=== PATIENT | female | born 1995 | race African-American/Black ===

== ENCOUNTER 2016-09-01 11:58 | Emergency (ER) | payer SELFPAY ==
[2016-09-01 12:06] VITALS: BP 130/74; BMI 35.4
--- NOTE | 2016-09-01 12:38 | DR.URIAD ---
HPI - Time Seen Time seen: 12:32 - PCP Primary Care Physician: PARAMJIT - HPI Comment HPI Comment: Sore throat with slight cough and congestion for 2-3 days; feels like something is stuck in the back of her throat; no fever/chills/n/v/d; she has a constant rash which is unchanged from her usual; otc meds aren't helping; she doesn't smoke but does have asthma. - Complaint Chief Complaint:: PT C/O SORETHROAT, CCC, AND BACK PAIN.......PT STATES " I THINK I MAY HAVE STREP THROAT".. Self Treatment fo Chief Complaint: ALCOSELZER.... - Source History Provided: Patient - Mode of Arrival Mode of Arrival: Ambulatory - Timing Onset of Chief Complaint: 08/30/16 - Quality Shortness of Breath: Mild PMH - PMH Past Medical History: Yes Past Medical History: Asthma Past Surgical History: No - Family History History of Family Medical Conditions: No Family Medical History: Diabetes Mellitus - Social History Does patient currently use any type of tobacco product: No Have you used tobacco products in the last 12 months: No Type of Tobacco Use: None Does any household member use tobacco: No Alcohol Use: None Do you use any recreational Drugs:: No Lives With: Dad Lives Where: Home - infectious screening In the last 2 months have you had wt loss of >10#?: NO Have you had fever, night sweats or hemotysis?: No Have you traveled outside the country in the last 6 months?: No Isolation: Standard ROS - Review of Systems Constitutional: Malaise, Fatigue ENTM: Throat Pain Respiratoy: See HPI Cardiovascular: No Symptoms Reported Gastrointestinal/Abdominal: No Symptoms Reported Neurological: No Symptoms Reported Musculoskeletal: Muscle Pain (all over) Integumentary: Rash (see hpi) PE - Vital Signs Vitals: Temperature 97.6 F Pulse Rate 95 Respiratory Rate 20 Blood Pressure 130/74 O2 Sat by Pulse Oximetry 99 - General Limitations: No Limitations General Appearance: Alert, In No Apparent Distress - Head Head Exam: Normal Inspection, Atraumatic - ENT ENT Exam: Other (uvula elongated, minimally swollen and red) External Ear Exam: Normal External Inspection Nose Exam: Normal Nose Exam - Neck Neck Exam: Normal Inspection - Respiratory Respiratory Exam: Normal Lung Sounds Bilat Respiratory Exam: Bilateral Clear to Auscultation - Cardiovascular Cardiovascular Exam: Regular Rate, Normal Rhythm - Abdominal Exam Abdominal Exam: Normal Inspection, Normal Bowel Sounds - Neurologic Neurological Exam: Alert, Oriented X3 - Psychiatric Psychiatric Exam: Normal Affect - Skin Skin Exam: Rash (diffuse, scattered, papular rash over forearms, face) ROR - Labs Reviewed Laboratory Results Reviewed?: Yes (strep negative) Laboratory: Streptococcus Screen Negative (NEGATIVE) 09/01/16 12:39 - Diagnosis Discharge Problem: Uvulitis - Discharge Plan Disposition: HOME, SELF-CARE Condition: Stable Prescriptions: Azithromycin [Zithromax Z-Chas 5-day] 1 dose PO DAILY #6 tab Prednisone [PREDNISONE TAB 10 MG *] 10 mg PO QAM #5 tab - Follow ups/Referrals Follow ups/Referrals: NFD,None [Primary Care Provider] - 3 days - Instructions Instructions: Uvulitis Additional Instructions: push fluids
== END 2016-09-01 13:41 | disposition home or self-care (01) ==
LOC: ER 12:21
DX: K12.2 Cellulitis and abscess of mouth (principal)
CPT/HCPCS: 87070; 87880; 99282

== ENCOUNTER 2016-09-23 07:53 | Emergency (ER) | payer SELFPAY ==
[2016-09-23 08:02] VITALS: BP 117/69; BMI 36.5
--- NOTE | 2016-09-23 08:20 | DR.GENAD ---
HPI - PCP Primary Care Physician: rip - HPI Comment HPI Comment: PATIENT IS SOB AND CHEST TIGHT THIS AM. HISTORY ASTHMA. RUNNING FEVER AND HAVE COLD COUGH AND CONGESTION. SHE IS WEAK AND HAVE HEADACHE. - Complaint/Symptoms Chief Complaint Doctors Comments: SORE THROAT, FEVER, COUGH AND CONGESTION TIMES ONE DAY. Chief Complaint:: patient stated she has a sore throat and she is congested and it makes it hard to breath since yesterday. - Nurses notes reviewed Nurses Notes Review: Yes - Source History Provided: Patient - Mode of Arrival Mode of Arrival: Ambulatory - Timing Onset of Chief Complaint: 09/22/16 Came on: Suddenly - Duration Duration: Constant Duration: Days - Severity Severity: Moderate PMH - PMH Past Medical History: Yes Past Medical History: Asthma Past Surgical History: No - Family History History of Family Medical Conditions: No Family Medical History: Diabetes Mellitus - Social History Does patient currently use any type of tobacco product: No Have you used tobacco products in the last 12 months: No Type of Tobacco Use: None Does any household member use tobacco: No Alcohol Use: None Do you use any recreational Drugs:: No Lives With: Family Lives Where: Home - infectious screening In the last 2 months have you had wt loss of >10#?: NO Have you had fever, night sweats or hemotysis?: No Have you traveled outside the country in the last 6 months?: No Isolation: Standard ROS - Review of Systems Constitutional: Fever, Weakness, Fatigue. negative: Chills Eyes: No Symptoms Reported. negative: Eye Pain, Discharge ENTM: Nose Discharge, Nose Congestion, Throat Pain. negative: Ear Pain Respiratoy: Productive Cough, Short of Breath, Wheezing. negative: Hemoptysis Cardiovascular: Chest Pain Gastrointestinal/Abdominal: No Symptoms Reported. negative: Constipation, Diarrhea, Nausea, Vomiting Genitourinary: No Symptoms Reported. negative: Dysuria, Frequency, Hematuria Neurological: Headache, Weakness, Dizziness Musculoskeletal: Muscle Pain Integumentary: No Symptoms Reported Hematologic/Lymphatic: No Symptoms Reported Endocrine: No Symptoms Reported All Other Systems: Reviewed and Negative PE - Vital Signs Vitals: Temperature 98.2 F Pulse Rate 101 Respiratory Rate 18 Blood Pressure 117/69 O2 Sat by Pulse Oximetry 96 - General Limitations: No Limitations General Appearance: Alert - Head Head Exam: Normal Inspection - Eyes Eye exam: Normal Appearance - ENT ENT Exam: Normal External Ear Exam External Ear Exam: Normal External Inspection TM/Canal Exam: Bilateral Normal Nose Exam: Normal Nose Exam Mouth Exam: Normal Inspection Throat Exam: Normal Inspection - Neck Neck Exam: Normal Inspection - Chest Chest Inspection: Symmetric Chest Wall Rise - Respiratory Respiratory Exam: Normal Lung Sounds Bilat Respiratory Exam: Bilateral Wheezing, Bilateral Rhonchi, Lower Wheezing, Lower Rhonchi - Cardiovascular Cardiovascular Exam: Regular Rate, Normal Rhythm, Normal Heart Sounds - Abdominal Exam Abdominal Exam: Normal Bowel Sounds, Soft. negative: Tenderness - Extremities Extremities Exam: Normal Inspection - Back Back Exam: Normal Inspection - Neurologic Neurological Exam: Alert, Oriented X3 - Psychiatric Psychiatric Exam: Anxious - Skin Skin Exam: Normal Color MDM - Differential Diagnosis Differential Diagnosis: BRONCHITIS, PNEUMONIA, SINUSITIS, PHARYNGITIS, ASTHMA Course - Treatment Treatment: SEE ORDERS.NEB RX IN ED. - Reevaluation 1st: Improved - Education/Counseling Education/Counseling: Patient, Education Educated On: Treatment, Diagnosis, Needs for Follow Up ROR - Labs Reviewed Laboratory Results Reviewed?: Yes Laboratory: Streptococcus Screen Negative (NEGATIVE) 09/23/16 08:29 - XRAY XRAY Interpreted by: Radiologist XRAY Findings: REPORT DISCUSS WITH PATIENT. - Diagnosis Discharge Problem: Acute bronchitis Qualifiers: Bronchitis organism: other organism Qualified Code(s): J20.8 - Acute bronchitis due to other specified organisms Pharyngitis Qualifiers: Pharyngitis/tonsillitis etiology: other specified organisms Qualified Code(s): J02.8 - Acute pharyngitis due to other specified organisms - Discharge Plan Disposition: HOME, SELF-CARE Condition: Stable Prescriptions: Amoxicillin [Amoxil 875 mg] 875 mg PO BID #20 tab Benzonatate [Tessalon Perles] 100 mg PO TID PRN #15 cap PRN Reason: Cough Ibuprofen [MOTRIN TAB 600 MG *] 600 mg PO TID PRN #20 tab PRN Reason: Pain/Inflammation - Follow ups/Referrals Follow ups/Referrals: NFD,None [Primary Care Provider] - 3 days - Instructions Instructions: Pharyngitis, [id number], Acute Bronchitis, [id number] Additional Instructions: RETURN TO ED IF WORSE.
[2016-09-23] MEDS ORDERED: DUONEB 0.5 MG/3 MG ONE (08:40)
[2016-09-23] MEDS ORDERED: DUONEB 0.5 MG/3 MG NEB ONE (08:43)
--- NOTE | 2016-09-23 08:55 | RAD ---
HISTORY: Chest pain Study: chest one view Comparison: May 17, 2015 Findings: The trachea is midline. The cardiac silhouette is unremarkable. The lungs are clear without focal infiltrate or effusion. The bony thorax is unremarkable. IMPRESSION: 1. No acute cardiopulmonary disease. Reported By:
== END 2016-09-23 09:36 | disposition home or self-care (01) ==
LOC: ER 07:53
DX: J20.8 Acute bronchitis due to other specified organisms (principal); J02.8 Acute pharyngitis due to other specified organisms
CPT/HCPCS: 71010; 87070; 87502; 87503; 87880; 94640; 99282; 99283; J7620

== ENCOUNTER 2017-02-12 12:35 | Emergency (ER) | payer SELFPAY ==
[2017-02-12 12:39] VITALS: BP 141/82; BMI 36.5
[2017-02-12] MEDS ORDERED: TORADOL 60 MG VIAL IM ONE (13:02)
--- NOTE | 2017-02-12 13:19 | DR.GENAD ---
HPI - PCP Primary Care Physician: NONE - HPI Comment HPI Comment: NO TRAUMA, DYSURIA OR FEVER. GETTING WORSE. - Complaint/Symptoms Chief Complaint Doctors Comments: LOW BACK PAIN TIMES 2 DAYS. Chief Complaint:: "LOWER BACK BEEN HURTING FOR TWO DAYS WHEN SHE STANDS UP TO WALK" - Nurses notes reviewed Nurses Notes Review: Yes - Source History Provided: Patient - Mode of Arrival Mode of Arrival: Ambulatory - Timing Onset of Chief Complaint: 02/12/17 Came on: Suddenly - Duration Duration: Constant Duration: Days - Severity Severity: Moderate PMH - PMH Past Medical History: Yes Past Medical History: Asthma Past Surgical History: No - Family History History of Family Medical Conditions: Yes Family Medical History: Diabetes Mellitus - Social History Does patient currently use any type of tobacco product: No Have you used tobacco products in the last 12 months: No Type of Tobacco Use: None Does any household member use tobacco: No Alcohol Use: None Do you use any recreational Drugs:: No Lives With: Family Lives Where: Home - infectious screening In the last 2 months have you had wt loss of >10#?: NO Have you had fever, night sweats or hemotysis?: No Have you traveled outside the country in the last 6 months?: No Isolation: Standard ROS - Review of Systems Constitutional: No Symptoms Reported Eyes: No Symptoms Reported ENTM: No Symptoms Reported Respiratoy: No Symptoms Reported Cardiovascular: No Symptoms Reported Gastrointestinal/Abdominal: No Symptoms Reported Genitourinary: No Symptoms Reported Neurological: No Symptoms Reported Musculoskeletal: Back Pain, Back Integumentary: No Symptoms Reported Hematologic/Lymphatic: No Symptoms Reported Endocrine: No Symptoms Reported All Other Systems: Reviewed and Negative PE - Vital Signs Vitals: Temperature 98 F Pulse Rate 76 Respiratory Rate 18 Blood Pressure 141/82 O2 Sat by Pulse Oximetry 99 - General Limitations: No Limitations General Appearance: Alert - Head Head Exam: Normal Inspection - Eyes Eye exam: Normal Appearance - ENT ENT Exam: Normal External Ear Exam External Ear Exam: Normal External Inspection TM/Canal Exam: Bilateral Normal Nose Exam: Normal Nose Exam Mouth Exam: Normal Inspection Throat Exam: Normal Inspection - Neck Neck Exam: Trachea Midline - Chest Chest Inspection: Symmetric Chest Wall Rise - Respiratory Respiratory Exam: Normal Lung Sounds Bilat Respiratory Exam: Bilateral Clear to Auscultation - Cardiovascular Cardiovascular Exam: Regular Rate, Normal Rhythm, Normal Heart Sounds - Abdominal Exam Abdominal Exam: Normal Bowel Sounds, Soft. negative: Tenderness - Extremities Extremities Exam: Normal Inspection - Back Back Exam: Paraspinal Tenderness (LOWER BACK) - Neurologic Neurological Exam: Alert, Oriented X3 - Psychiatric Psychiatric Exam: Normal Affect, Normal Mood - Skin Skin Exam: Normal Color MDM - Differential Diagnosis Differential Diagnosis: LOW BACK PAIN, UTI Course - Treatment Treatment: SEE ORDERS. - Education/Counseling Education/Counseling: Patient, Education Educated On: Treatment, Diagnosis, Needs for Follow Up ROR - Labs Reviewed Laboratory Results Reviewed?: Yes Laboratory: Specimen Type Clean catch urine 02/12/17 13:42 Urine Color Dark yellow (YELLOW) 02/12/17 13:42 Urine Appearance Slightly hazy (CLEAR) 02/12/17 13:42 Urine pH 6.5 (5.0 - 8.0) 02/12/17 13:42 Ur Specific [place] 1.015 (1.000-1.030) 02/12/17 13:42 Urine Protein Negative (NEGATIVE) 02/12/17 13:42 Urine Glucose (UA) Negative (NEGATIVE) 02/12/17 13:42 Urine Ketones Negative (NEGATIVE) 02/12/17 13:42 Urine Occult Blood Negative (NEGATIVE) 02/12/17 13:42 Urine Nitrite Negative (NEGATIVE) 02/12/17 13:42 Urine Bilirubin Negative (NEGATIVE) 02/12/17 13:42 Urine Urobilinogen 2+ (NORMAL) 02/12/17 13:42 Ur Leukocyte Esterase 1+ (NEGATIVE) 02/12/17 13:42 Urine RBC 2-3 /HPF (NEGATIVE) 02/12/17 13:42 Urine WBC 0-2 /HPF (NEGATIVE) 02/12/17 13:42 Ur Squamous Epith Cells Moderate /HPF (NEGATIVE) 02/12/17 13:42 Urine Bacteria 1+ /HPF (NEGATIVE) 02/12/17 13:42 Urine Mucus Moderate /HPF (NEGATIVE) 02/12/17 13:42 Ur Culture Indicated? No/not indicated 02/12/17 13:42 - XRAY XRAY Interpreted by: Radiologist XRAY Findings: report discuss with patient. - Diagnosis Discharge Problem: Low back pain Qualifiers: Chronicity: acute Back pain laterality: bilateral Sciatica presence: without sciatica Qualified Code(s): M54.5 - Low back pain - Discharge Plan Disposition: 01 HOME, SELF-CARE Condition: Stable Prescriptions: Cyclobenzaprine HCl [FLEXERIL 10 MG *] 10 mg PO TID PRN #20 tab PRN Reason: Ibuprofen [MOTRIN TAB 800 MG *] 800 mg PO Q8H PRN #20 tab PRN Reason: Pain/Inflammation - Follow ups/Referrals Follow ups/Referrals: NFD,None [Primary Care Provider] - 3 days - Instructions Instructions: Back Pain, Adult, [id number] Additional Instructions: RETURN TO ED IF WORSE.
[2017-02-12] MEDS ORDERED: TORADOL 60 MG VIAL ONE (13:21)
[2017-02-12 13:55] LABS: BILIRUBIN,URINE NEGATIVE (NEGATIVE); BLOOD/HEMOGLOBIN,URINE NEGATIVE (NEGATIVE); GLUCOSE, URINE NEGATIVE (NEGATIVE); KETONES,URINE NEGATIVE (NEGATIVE); LEUKOCYTE ESTERASE ,URINE 1+ (NEGATIVE); NITRITES,URINE NEGATIVE (NEGATIVE); PH,URINE 6.5 (5.0 - 8.0); PROTEIN,URINE NEGATIVE (NEGATIVE); UROBILINOGEN,URINE 2+ (NORMAL)
--- NOTE | 2017-02-12 14:01 | RAD ---
HISTORY: Low back pain Study: Lumbar spine AP, lateral, bilateral obliques, spot Comparison: None Findings: Normal alignment of the lumbar spine is maintained. The posterior elements appear unremarkable in th eir appearance. The disk space height is maintained without significant endplate sclerosis. No evid ence for acute fracture can be identified. No spondylolysis or spondylolisthesis is identified. The S I joints are normal. IMPRESSION: 1. Negative exam. Reported By:
[2017-02-12 14:03] LABS: APPEARANCE,URINE SLIGHTLY HAZY (CLEAR); BACTERIA,URINE 1+ /HPF (NEGATIVE); COLOR,URINE DARK YELLOW (YELLOW); MUCUS,URINE MODERATE /HPF (NEGATIVE); SQUAMOUS EPITHELIAL CELL,UR MODERATE /HPF (NEGATIVE)
== END 2017-02-12 14:32 | disposition home or self-care (01) ==
LOC: ER 12:44
DX: M54.5 Low back pain (principal)
CPT/HCPCS: 72110; 81001; 96372; 99282; 99283; J1885

== ENCOUNTER 2017-06-24 14:24 | Emergency (ER) | payer SELFPAY ==
[2017-06-24 14:27] VITALS: BP 116/74; BMI 31.3
--- NOTE | 2017-06-24 15:41 | DR.GENAD ---
HPI - PCP Primary Care Physician: NFD - Complaint/Symptoms Chief Complaint Doctors Comments: patient admits to vomiting and diarrhea since this morning. She denies fever. Chief Complaint:: PT. C/O STOMACH CRAMPS, N/V/D THAT BEGAN THIS MORNING. PT. STATES "I THINK I'VE GOT FOOD POISINING." - Source History Provided: Patient - Mode of Arrival Mode of Arrival: Ambulatory - Timing Onset of Chief Complaint: 06/24/17 PMH - PMH Past Medical History: Yes Past Medical History: Asthma Past Surgical History: No Surgical History: No History - Family History History of Family Medical Conditions: Yes Family Medical History: Diabetes Mellitus - Social History Does patient currently use any type of tobacco product: No Have you used tobacco products in the last 12 months: No Type of Tobacco Use: None Does any household member use tobacco: No Alcohol Use: None Do you use any recreational Drugs:: No Lives With: Alone Lives Where: Home - infectious screening In the last 2 months have you had wt loss of >10#?: NO Have you had fever, night sweats or hemotysis?: No Have you traveled outside the country in the last 6 months?: No Isolation: Standard ROS - Review of Systems Constitutional: No Symptoms Reported Eyes: No Symptoms Reported ENTM: No Symptoms Reported Respiratoy: No Symptoms Reported Cardiovascular: No Symptoms Reported Gastrointestinal/Abdominal: No Symptoms Reported Genitourinary: No Symptoms Reported Neurological: No Symptoms Reported, Emotional Problems Musculoskeletal: No Symptoms Reported Integumentary: No Symptoms Reported Hematologic/Lymphatic: No Symptoms Reported Endocrine: No Symptoms Reported Psychiatric: No Symptoms Reported All Other Systems: Reviewed and Negative PE - Vital Signs Vitals: Temperature 99.4 F Pulse Rate 90 Respiratory Rate 22 Blood Pressure 116/74 O2 Sat by Pulse Oximetry 98 - General Limitations: No Limitations General Appearance: Alert, In No Apparent Distress - Head Head Exam: Normal Inspection, Atraumatic - Eyes Eye exam: Normal Appearance, PERRL, EOMI - ENT ENT Exam: Normal Exam External Ear Exam: Normal External Inspection TM/Canal Exam: Bilateral Normal Nose Exam: Normal Nose Exam Mouth Exam: Normal Inspection Throat Exam: Normal Inspection - Neck Neck Exam: Normal Inspection, Full ROM - Chest Chest Inspection: Normal Inspection - Respiratory Respiratory Exam: Normal Lung Sounds Bilat Respiratory Exam: Bilateral Clear to Auscultation - Cardiovascular Cardiovascular Exam: Regular Rate, Normal Rhythm - Abdominal Exam Abdominal Exam: Normal Inspection Abdominal Tenderness: LLQ - Extremities Extremities Exam: Normal Inspection, Full ROM - Back Back Exam: Normal Inspection - Neurologic Neurological Exam: Alert, Oriented X3, CN II-XII Intact - Psychiatric Psychiatric Exam: Normal Affect - Skin Skin Exam: Warm, Dry ROR - Labs Reviewed Result Diagrams: 06/24/17 16:29 Laboratory: WBC 6.7 X10^3/uL (3.6-10.0) 06/24/17 16:29 RBC 5.11 X10^6/uL (3.5-5.4) 06/24/17 16:29 Hgb 14.0 g/dL (12.0-16.0) 06/24/17 16:29 Hct 42.7 % (36.0-47.0) 06/24/17 16: MCV 83.5 fL (80.0-100.0) 06/24/17 16: MCH 27.4 pg (27.0-34.0) 06/24/17 16: MCHC 32.8 g/dL (33.0-35.0) L 06/24/17 16:29 RDW 13.8 % (11.6-16.5) 06/24/17 16: Plt Count 343 X10^3/uL (150.0-450.0) 06/24/17 16:29 MPV 7.7 fL (7.4-11.0) 06/24/17 16:29 Neut % 74.5 % (42.0-75.0) 06/24/17 16: Lymph % 15.9 % (21.0-51.0) L 06/24/17 16:29 [place] % 6.3 % (0.0-13.0) 06/24/17 16:29 Eos % 3.1 % (0.9-2.9) H 06/24/17 16:29 Baso % 0.2 % (0.2-1.0) 06/24/17 16:29 Neut # 5.0 x10^3/uL (2.2-4.8) H 06/24/17 16:29 Lymph # 1.1 X10^3/uL (1.3-2.9) L 06/24/17 16:29 [place] # 0.4 x10^3/uL (0.3-0.8) 06/24/17 16:29 Eos # 0.2 x10^3/uL (0.0-0.2) 06/24/17 16:29 Baso # 0.0 X10^3/uL (0.0-0.1) 06/24/17 16:29 Absolute Nucleated RBC 0.1 /100WBC 06/24/17 16:29 C-Reactive Protein 3.50 mg/L (0-3.0) H 06/24/17 16:29 Specimen Type Clean catch urine 06/24/17 16:03 Urine Color Yellow (YELLOW) 06/24/17 16:03 Urine Appearance Clear (CLEAR) 06/24/17 16:03 Urine pH 6.0 (5.0 - 8.0) 06/24/17 16:03 Ur Specific [place] 1.020 (1.000-1.030) 06/24/17 16:03 Urine Protein Negative (NEGATIVE) 06/24/17 16:03 Urine Glucose (UA) Negative (NEGATIVE) 06/24/17 16:03 Urine Ketones Negative (NEGATIVE) 06/24/17 16:03 Urine Occult Blood Negative (NEGATIVE) 06/24/17 16:03 Urine Nitrite Negative (NEGATIVE) 06/24/17 16:03 Urine Bilirubin Negative (NEGATIVE) 06/24/17 16:03 Urine Urobilinogen Normal (NORMAL) 06/24/17 16:03 Ur Leukocyte Esterase 1+ (NEGATIVE) 06/24/17 16:03 Urine RBC 0-1 /HPF (NEGATIVE) 06/24/17 16:03 Urine WBC 0-2 /HPF (NEGATIVE) 06/24/17 16:03 Ur Squamous Epith Cells Many /HPF (NEGATIVE) 06/24/17 16:03 Urine Bacteria Trace /HPF (NEGATIVE) 06/24/17 16:03 Urine Mucus Many /HPF (NEGATIVE) 06/24/17 16:03 Ur Culture Indicated? No/not indicated 06/24/17 16:03 S. pyogenes (TEM-PCR) Detected (NOT DETECT) A 06/24/17 16:35 - Diagnosis Discharge Problem: Strep pharyngitis - Discharge Plan Condition: Stable - Follow ups/Referrals Follow ups/Referrals: NFD,None [Primary Care Provider] - 3 days - Instructions
[2017-06-24] MEDS ORDERED: ZOFRAN SYRUP 4 MG UDC PO ONE (15:55)
[2017-06-24 16:11] LABS: BILIRUBIN,URINE NEGATIVE (NEGATIVE); BLOOD/HEMOGLOBIN,URINE NEGATIVE (NEGATIVE); GLUCOSE, URINE NEGATIVE (NEGATIVE); KETONES,URINE NEGATIVE (NEGATIVE); LEUKOCYTE ESTERASE ,URINE 1+ (NEGATIVE); NITRITES,URINE NEGATIVE (NEGATIVE); PROTEIN,URINE NEGATIVE (NEGATIVE); UROBILINOGEN,URINE NORMAL (NORMAL)
[2017-06-24] MEDS ORDERED: ZOFRAN SYRUP 4 MG UDC ONE (16:14)
[2017-06-24 16:19] LABS: APPEARANCE,URINE CLEAR (CLEAR); BACTERIA,URINE TRACE /HPF (NEGATIVE); COLOR,URINE YELLOW (YELLOW); MUCUS,URINE MANY /HPF (NEGATIVE); RBC,URINE 0-1 /HPF (NEGATIVE); SQUAMOUS EPITHELIAL CELL,UR MANY /HPF (NEGATIVE)
[2017-06-24] MEDS ORDERED: BENTYL I.M. INJ 10 MG IM ONE ×2 (16:24→16:33)
[2017-06-24 16:44] LABS: BASOPHILS % (AUTO) 0.2 % (0.2-1.0); EOSINOPHILS # (AUTO) 0.2 x10^3/uL (0.0-0.2); EOSINOPHILS % (AUTO) 3.1 % (0.9-2.9); HEMATOCRIT 42.7 % (36.0-47.0); LYMPHOCYTES # (AUTO) 1.1 X10^3/uL (1.3-2.9); LYMPHOCYTES % (AUTO) 15.9 % (21.0-51.0); MEAN CORPUSCULAR HEMOGLOBIN 27.4 pg (27.0-34.0); MEAN CORPUSCULAR HGB CONC 32.8 g/dL (33.0-35.0); MEAN CORPUSCULAR VOLUME 83.5 fL (80.0-100.0); MEAN PLATELET VOLUME 7.7 fL (7.4-11.0); MONOCYTES # (AUTO) 0.4 x10^3/uL (0.3-0.8); MONOCYTES % (AUTO) 6.3 % (0.0-13.0); NEUTROPHILS % (AUTO) 74.5 % (42.0-75.0); PLATELET COUNT 343 X10^3/uL (150.0-450.0); RED BLOOD COUNT 5.11 X10^6/uL (3.5-5.4); RED CELL DISTRIBUTION WIDTH 13.8 % (11.6-16.5); WHITE BLOOD COUNT 6.7 X10^3/uL (3.6-10.0)
[2017-06-24] MEDS ORDERED: ROCEPHIN VIAL 500 MG 500 MG in NS 25 ML IV 25 ML IV ONE (17:27)
[2017-06-24] MEDS ORDERED: ROCEPHIN VIAL 500 MG IM ONE (17:36)
[2017-06-24] MEDS ORDERED: ROCEPHIN VIAL 500 MG ONE (17:37)
[2017-06-24] MEDS ORDERED: XYLOCAINE 1 % (PLAIN) ONE (17:37)
== END 2017-06-24 17:47 | disposition home or self-care (01) ==
LOC: ER 14:34
DX: J02.0 Streptococcal pharyngitis (principal)
CPT/HCPCS: 36415; 81001; 85025; 86140; 87651; 96372; 99282; J0500; J0696; J2001; Q0162

== ENCOUNTER 2017-08-26 10:57 | Emergency (ER) | payer SELFPAY ==
[2017-08-26 11:04] VITALS: BP 121/80; BMI 28.0
--- NOTE | 2017-08-26 12:08 | DR.URIAD ---
HPI - Time Seen Time seen: 11:35 - PCP Primary Care Physician: SANDY RAMIREZ - HPI Comment HPI Comment: WORSE TODAY. - Complaint Chief Complaint Doctors Comments: SORE THROAT, CONGESTION AND HEADACHE TIMES ONE DAY. Chief Complaint:: PT C/O OF LAST NIGHT SHE STARTED HAVING SORETHROAR, RUNNY NOSE, AND MIGRAINE.. - Reviewed Nurses Notes Reviewed: Yes - Source History Provided: Patient - Mode of Arrival Mode of Arrival: Ambulatory - Timing Onset of Chief Complaint: 08/26/17 - Context Recent Treated Infections: None History of Respiratory: None - Quality Quality of Cough: Productive, Yellow Rhinorrhea: Green Shortness of Breath: none - Associated Signs and Symptoms Other Signs and Symptoms: Cough, Myalgias, Sore Throat PMH - PMH Past Medical History: Yes Past Medical History: Asthma Past Surgical History: No Surgical History: No History - Family History History of Family Medical Conditions: No Family Medical History: Diabetes Mellitus - Social History Does patient currently use any type of tobacco product: No Have you used tobacco products in the last 12 months: No Type of Tobacco Use: None Does any household member use tobacco: No Alcohol Use: None Do you use any recreational Drugs:: No Lives With: Family Lives Where: Home - infectious screening In the last 2 months have you had wt loss of >10#?: NO Have you had fever, night sweats or hemotysis?: No Have you traveled outside the country in the last 6 months?: No Isolation: Standard ROS - Review of Systems Constitutional: No Symptoms Reported Eyes: No Symptoms Reported ENTM: Nose Discharge, Nose Congestion, Throat Pain. negative: Ear Pain Respiratoy: Productive Cough. negative: Short of Breath, Wheezing, Hemoptysis Cardiovascular: No Symptoms Reported Gastrointestinal/Abdominal: No Symptoms Reported Genitourinary: No Symptoms Reported Neurological: Headache, Dizziness Musculoskeletal: Muscle Pain Integumentary: Change in Hair/Nails Hematologic/Lymphatic: No Symptoms Reported Endocrine: No Symptoms Reported Psychiatric: No Symptoms Reported All Other Systems: Reviewed and Negative PE - Vital Signs Vitals: Temperature 98.2 F Pulse Rate 77 Respiratory Rate 20 Blood Pressure 121/80 O2 Sat by Pulse Oximetry 99 - General Limitations: No Limitations General Appearance: Alert - Head Head Exam: Normal Inspection - Eyes Eye exam: Normal Appearance - ENT ENT Exam: Normal External Ear Exam External Ear Exam: Normal External Inspection TM/Canal Exam: Bilateral Normal Nose Exam: Sinus Tenderness Mouth Exam: Normal Inspection Throat Exam: Tonsillar Erythema - Neck Neck Exam: Trachea Midline - Chest Chest Inspection: Symmetric Chest Wall Rise - Respiratory Respiratory Exam: Normal Lung Sounds Bilat Respiratory Exam: Bilateral Clear to Auscultation - Cardiovascular Cardiovascular Exam: Regular Rate, Normal Rhythm, Normal Heart Sounds - Abdominal Exam Abdominal Exam: Normal Inspection - Back Back Exam: Normal Inspection - Neurologic Neurological Exam: Alert, Oriented X3 - Psychiatric Psychiatric Exam: Normal Affect, Normal Mood - Skin Skin Exam: Normal Color MDM - Differential Diagnosis Differential Diagnosis: Otitis media, Streptococcal pharyngitis, Viral pharyngitis, Pneumonia, Sinsusitis, URI Course - Treatment Treatment: SEE ORDERS. - Education/Counseling Education/Counseling: Patient, Education Educated On: Diagnosis, Needs for Follow Up ROR - Labs Reviewed Laboratory: Influenza Type A (PCR) Negative (NEGATIVE) 08/26/17 11:23 Influenza Type B (PCR) Negative (NEGATIVE) 08/26/17 11:23 S. pyogenes (TEM-PCR) Not detected (NOT DETECT) 08/26/17 11:23 - Diagnosis Discharge Problem: Sore throat Sinusitis Qualifiers: Sinusitis location: unspecified location Chronicity: acute Recurrence: not specified as recurrent Qualified Code(s): J01.90 - Acute sinusitis, unspecified - Discharge Plan Disposition: HOME, SELF-CARE Condition: Stable Prescriptions: Amoxicillin [Amoxil 875 mg] 875 mg PO Q12H #20 tab Ibuprofen [MOTRIN TAB 800 MG *] 800 mg PO Q8H PRN #30 tab PRN Reason: Pain/Inflammation - Follow ups/Referrals Follow ups/Referrals: NFD,None [Primary Care Provider] - 3 days - Instructions Instructions: Sinusitis, Adult, [id number], Pharyngitis, [id number] Additional Instructions: RETURN TO ED IF WORSE.
== END 2017-08-26 13:00 | disposition home or self-care (01) ==
LOC: ER 11:05
DX: J02.9 Acute pharyngitis, unspecified (principal); J01.80 Other acute sinusitis
CPT/HCPCS: 87502; 87651; 99282

== ENCOUNTER 2017-08-27 08:31 | Emergency (ER) | payer SELFPAY ==
[2017-08-27 08:40] VITALS: BP 139/95; BMI 29.1
--- NOTE | 2017-08-27 08:56 | DR.GENAD ---
HPI - PCP Primary Care Physician: NFD - Complaint/Symptoms Chief Complaint Doctors Comments: Patient presents with complatin of asthma attack. She states that she has been using her albuterol but is out at this time. She states that she has had althma most of her life. Admits to cigarette smoking. Chief Complaint:: BREATHING PROBLEMS, HURTS WHEN I TAKE A DEEP BREATHE. I HAVE ASTHMA PROBLEMS. I HAVE AN INHALER BUT I AM OUT. I USE TO SEE RAKESH BUT I DON'T HAVE INSURANCE SO I CAN'T GO TO DOCTOR. - Source History Provided: Patient - Mode of Arrival Mode of Arrival: Ambulatory - Timing Onset of Chief Complaint: 08/27/17 PMH - PMH Past Medical History: Yes Past Medical History: Asthma Past Surgical History: No Surgical History: No History - Family History History of Family Medical Conditions: No Family Medical History: Diabetes Mellitus - Social History Does patient currently use any type of tobacco product: Yes Have you used tobacco products in the last 12 months: Yes Type of Tobacco Use: Cigarettes Does any household member use tobacco: No Alcohol Use: None Do you use any recreational Drugs:: No Lives With: Alone Lives Where: Home - infectious screening In the last 2 months have you had wt loss of >10#?: NO Have you had fever, night sweats or hemotysis?: No Have you traveled outside the country in the last 6 months?: No Isolation: Standard ROS - Review of Systems Eyes: No Symptoms Reported ENTM: No Symptoms Reported Respiratoy: Non-Productive Cough, Wheezing Cardiovascular: No Symptoms Reported Gastrointestinal/Abdominal: No Symptoms Reported Genitourinary: No Symptoms Reported Neurological: No Symptoms Reported Musculoskeletal: No Symptoms Reported Integumentary: No Symptoms Reported Hematologic/Lymphatic: No Symptoms Reported Endocrine: No Symptoms Reported Psychiatric: No Symptoms Reported All Other Systems: Reviewed and Negative PE - Vital Signs Vitals: Temperature 98.4 F Pulse Rate 59 Respiratory Rate 20 Blood Pressure 139/95 O2 Sat by Pulse Oximetry 99 - General Limitations: No Limitations General Appearance: Alert, In No Apparent Distress - Head Head Exam: Normal Inspection, Atraumatic - Eyes Eye exam: Normal Appearance, PERRL, EOMI - ENT ENT Exam: Normal Exam External Ear Exam: Normal External Inspection TM/Canal Exam: Bilateral Normal Nose Exam: Normal Nose Exam Mouth Exam: Normal Inspection Throat Exam: Normal Inspection - Neck Neck Exam: Normal Inspection - Chest Chest Inspection: Normal Inspection - Respiratory Respiratory Exam: Normal Lung Sounds Bilat Respiratory Exam: Bilateral Wheezing, Bilateral Decreased Breath Sounds - Cardiovascular Cardiovascular Exam: Regular Rate, Normal Rhythm - Abdominal Exam Abdominal Exam: Normal Inspection, Normal Bowel Sounds Abdominal Tenderness: negative: RUQ, RLQ, LUQ, LLQ, Epigastrium, Suprapubic, Diffuse, Mild, Moderate, Severe, Other - Extremities Extremities Exam: Normal Inspection, Full ROM - Back Back Exam: Normal Inspection - Neurologic Neurological Exam: Alert, Oriented X3, CN II-XII Intact - Psychiatric Psychiatric Exam: Normal Affect - Skin Skin Exam: Warm, Dry, Intact Course - Reevaluation 1st: Improved - Education/Counseling Educated On: Treatment, Diagnosis, Prognosis, Needs for Follow Up ROR - Labs Reviewed Result Diagrams: 08/27/17 09:12 08/27/17 09:12 Laboratory: WBC 6.4 X10^3/uL (3.6-10.0) 08/27/17 09:12 RBC 4.65 X10^6/uL (3.5-5.4) 08/27/17 09:12 Hgb 13.0 g/dL (12.0-16.0) 08/27/17 09:12 Hct 39.0 % (36.0-47.0) 08/27/17 09:12 MCV 83.9 fL (80.0-100.0) 08/27/17 09:12 MCH 27.9 pg (27.0-34.0) 08/27/17 09:12 MCHC 33.2 g/dL (33.0-35.0) 08/27/17 09:12 RDW 13.1 % (11.6-16.5) 08/27/17 09:12 Plt Count 331 X10^3/uL (150.0-450.0) 08/27/17 09:12 MPV 7.5 fL (7.4-11.0) 08/27/17 09:12 Neut % (Auto) 59.6 % (42.0-75.0) 08/27/17 09:12 Lymph % (Auto) 21.9 % (21.0-51.0) 08/27/17 09:12 Bryan % (Auto) 9.8 % (0.0-13.0) 08/27/17 09:12 Eos % (Auto) 7.7 % (0.9-2.9) H 08/27/17 09:12 Baso % (Auto) 1.0 % (0.2-1.0) 08/27/17 09:12 Neut # (Auto) 3.8 x10^3/uL (2.2-4.8) 08/27/17 09:12 Lymph # (Auto) 1.4 X10^3/uL (1.3-2.9) 08/27/17 09:12 Bryan # (Auto) 0.6 x10^3/uL (0.3-0.8) 08/27/17 09:12 Eos # (Auto) 0.5 x10^3/uL (0.0-0.2) H 08/27/17 09:12 Baso # (Auto) 0.1 X10^3/uL (0.0-0.1) 08/27/17 09:12 Absolute Nucleated RBC 0.0 /100WBC 08/27/17 09:12 - XRAY XRAY Interpreted by: Radiologist (Chest; No active cardiopulmonary disease) - Diagnosis Discharge Problem: Acute asthma exacerbation Qualifiers: Asthma severity: mild Asthma persistence: unspecified Qualified Code(s): J45.901 - Unspecified asthma with (acute) exacerbation - Discharge Plan Condition: Stable - Follow ups/Referrals Follow ups/Referrals: NFD,None [Primary Care Provider] - 3 days - Instructions
[2017-08-27] MEDS ORDERED: NS 1000 ML 1,000 ML ONE (09:00)
[2017-08-27] MEDS ORDERED: SOLU-Medrol 125 MG VIAL ONE (09:00)
[2017-08-27] MEDS ORDERED: DUONEB 0.5 MG/3 MG NEB ONE (09:03)
[2017-08-27] MEDS ORDERED: SOLU-Medrol 125 MG VIAL IVP ONE (09:03)
[2017-08-27] MEDS ORDERED: DUONEB 0.5 MG/3 MG ONE (09:05)
[2017-08-27 09:33] LABS: BASOPHILS # (AUTO) 0.1 X10^3/uL (0.0-0.1); EOSINOPHILS # (AUTO) 0.5 x10^3/uL (0.0-0.2); EOSINOPHILS % (AUTO) 7.7 % (0.9-2.9); LYMPHOCYTES # (AUTO) 1.4 X10^3/uL (1.3-2.9); LYMPHOCYTES % (AUTO) 21.9 % (21.0-51.0); MEAN CORPUSCULAR HEMOGLOBIN 27.9 pg (27.0-34.0); MEAN CORPUSCULAR HGB CONC 33.2 g/dL (33.0-35.0); MEAN CORPUSCULAR VOLUME 83.9 fL (80.0-100.0); MEAN PLATELET VOLUME 7.5 fL (7.4-11.0); MONOCYTES # (AUTO) 0.6 x10^3/uL (0.3-0.8); MONOCYTES % (AUTO) 9.8 % (0.0-13.0); NEUTROPHILS # (AUTO) 3.8 x10^3/uL (2.2-4.8); NEUTROPHILS % (AUTO) 59.6 % (42.0-75.0); PLATELET COUNT 331 X10^3/uL (150.0-450.0); RED BLOOD COUNT 4.65 X10^6/uL (3.5-5.4); RED CELL DISTRIBUTION WIDTH 13.1 % (11.6-16.5); WHITE BLOOD COUNT 6.4 X10^3/uL (3.6-10.0)
[2017-08-27 09:34] LABS: BLOOD UREA NITROGEN 9 mg/dL (7-18); CALCIUM 7.9 mg/dL (8.5-10.1); CARBON DIOXIDE 23.6 mmol/L (21-32); CHLORIDE 110 mmol/L (98-107); CREATININE 1.05 mg/dL (0.55-1.02); SODIUM 143 mmol/L (136-145); eGFR BLACK RACES > 60 (>60); eGFR NON BLACK RACES > 60 (>60)
--- NOTE | 2017-08-27 09:50 | RAD ---
History: Difficulty breathing Study: PA and lateral chest Comparison: September 23, 2016 Findings: The lungs remain clear. The heart and mediastinum are unremarkable. There is no pleural eff usion. No bony abnormality is suggested. Impression: No active cardiopulmonary disease Reported By:
[2017-08-27] MEDS ORDERED: NS 1000 ML 1,000 ML IV SCH (10:00)
== END 2017-08-27 10:04 | disposition home or self-care (01) ==
LOC: ER 08:42
DX: J45.901 Unspecified asthma with (acute) exacerbation (principal)
CPT/HCPCS: 36415; 71046; 80048; 85025; 93010; 94640; 96365; 96374; 99283; 99284; A4222; J2930; J7620

== ENCOUNTER 2017-09-17 18:08 | Emergency (ER) | payer SELFPAY ==
[2017-09-17 18:11] VITALS: BP 125/71; BMI 31.0
[2017-09-17 18:28] LABS: BILIRUBIN,URINE NEGATIVE (NEGATIVE); BLOOD/HEMOGLOBIN,URINE 3+ (NEGATIVE); GLUCOSE, URINE NEGATIVE (NEGATIVE); KETONES,URINE 2+ (NEGATIVE); LEUKOCYTE ESTERASE ,URINE 3+ (NEGATIVE); NITRITES,URINE NEGATIVE (NEGATIVE); PROTEIN,URINE 2+ (NEGATIVE); UROBILINOGEN,URINE 1+ (NORMAL)
[2017-09-17 18:29] LABS: APPEARANCE,URINE CLOUDY (CLEAR); COLOR,URINE YELLOW (YELLOW)
--- NOTE | 2017-09-17 18:29 | ED.ABDFE ---
HPI - Time seen Time seen: 18:30 - PCP Primary Care Physician: NFD - Complaint Chief Complaint Doctors Comments: Patient presents with complaint of lower abdominal pain all day. Painful urination, frequent urination. Denies fever or diarrhea. Chief Complaint:: PT. C/O LOWER STOMACH PAIN, LOWER BACK PAIN, AND DYSURIA. - Source History Provided: Patient - Mode of arrival Mode of Arrival: Ambulatory - Timing Onset of Chief Complaint: 09/17/17 PMH - PMH Past Medical History: Yes Past Medical History: Asthma Past Surgical History: No Surgical History: No History - Family History History of Family Medical Conditions: Yes Family Medical History: Diabetes Mellitus - Social History Does patient currently use any type of tobacco product: No Have you used tobacco products in the last 12 months: No Type of Tobacco Use: None Does any household member use tobacco: No Alcohol Use: None Do you use any recreational Drugs:: No Lives With: Alone Lives Where: Home - infectious screening In the last 2 months have you had wt loss of >10#?: NO Have you had fever, night sweats or hemotysis?: No Have you traveled outside the country in the last 6 months?: No Isolation: Standard ROS - Review of Systems Constitutional: No Symptoms Reported. negative: Chills, Diaphoresis Eyes: No Symptoms Reported ENTM: No Symptoms Reported Respiratoy: No Symptoms Reported Cardiovascular: No Symptoms Reported Gastrointestinal/Abdominal: No Symptoms Reported Genitourinary: No Symptoms Reported Neurological: No Symptoms Reported Musculoskeletal: No Symptoms Reported Integumentary: No Symptoms Reported Hematologic/Lymphatic: No Symptoms Reported Endocrine: No Symptoms Reported Psychiatric: No Symptoms Reported All Other Systems: Reviewed and Negative PE - Vital Signs Vitals: Temperature 99.5 F Pulse Rate 97 Respiratory Rate 20 Blood Pressure 125/71 O2 Sat by Pulse Oximetry 100 - General General Appearance: Alert - Head Head Exam: Normal Inspection, Atraumatic - Eyes Eye exam: Normal Appearance, PERRL, EOMI - ENT ENT Exam: Normal Exam - Neck Neck Exam: Normal Inspection - Chest Chest Inspection: Normal Inspection, Symmetric Chest Wall Rise - Respiratory Respiratory Exam: Normal Lung Sounds Bilat Respiratory Exam: Bilateral Clear to Auscultation - Cardiovascular Cardiovascular Exam: Regular Rate, Normal Rhythm - Abdominal Exam Abdominal Exam: Normal Inspection, Normal Bowel Sounds Abdominal Tenderness: negative: RUQ, RLQ, LUQ, LLQ, Epigastrium, Suprapubic, Diffuse, Mild, Moderate, Severe, Other - Back Back Exam: Normal Inspection - Extremeties Extremities Exam: Normal Inspection, Full ROM - External Exam: Female: Deferred : Speculum Exam (Female): Deferred : Bimanual Exam (female): Deferred - Neurologic Neurological Exam: Alert, Oriented X3, CN II-XII Intact - Psychiatric Psychiatric Exam: Normal Affect - Skin Skin Exam: Warm, Dry Course - Reevaluation 1st: Unchanged ROR - Labs Reviewed Laboratory Results Reviewed?: Yes (UA:3+Leuk;wbc TNTC,RBC 10-20) Laboratory: Specimen Type Clean catch urine 09/17/17 18:20 Urine Color Yellow (YELLOW) 09/17/17 18:20 Urine Appearance Cloudy (CLEAR) 09/17/17 18:20 Urine pH 6.0 (5.0 - 8.0) 09/17/17 18:20 Ur Specific [place] 1.020 (1.000-1.030) 09/17/17 18:20 Urine Protein 2+ (NEGATIVE) 09/17/17 18:20 Urine Glucose (UA) Negative (NEGATIVE) 09/17/17 18:20 Urine Ketones 2+ (NEGATIVE) 09/17/17 18:20 Urine Occult Blood 3+ (NEGATIVE) 09/17/17 18:20 Urine Nitrite Negative (NEGATIVE) 09/17/17 18:20 Urine Bilirubin Negative (NEGATIVE) 09/17/17 18:20 Urine Urobilinogen 1+ (NORMAL) 09/17/17 18:20 Ur Leukocyte Esterase 3+ (NEGATIVE) 09/17/17 18:20 Urine RBC 10-20 /HPF (NONE SEEN) 09/17/17 18:20 Urine WBC Tntc /HPF (NONE SEEN) 09/17/17 18:20 Ur Squamous Epith Cells Moderate /HPF (NEGATIVE) 09/17/17 18:20 Urine Bacteria 1+ /HPF (NEGATIVE) 09/17/17 18:20 Urine Mucus Few /HPF (NEGATIVE) 09/17/17 18:20 Ur Culture Indicated? Yes/culture set up 09/17/17 18:20 - Diagnosis Discharge Problem: UTI (urinary tract infection) Qualifiers: Urinary tract infection type: acute cystitis Hematuria presence: with hematuria Qualified Code(s): N30.01 - Acute cystitis with hematuria - Discharge Plan Condition: Stable - Follow ups/Referrals Follow ups/Referrals: NFD,None [Primary Care Provider] - 3 days - Instructions
[2017-09-17 18:34] LABS: BACTERIA,URINE 1+ /HPF (NEGATIVE); SQUAMOUS EPITHELIAL CELL,UR MODERATE /HPF (NEGATIVE)
[2017-09-17 18:35] LABS: MUCUS,URINE FEW /HPF (NEGATIVE)
[2017-09-17] MEDS ORDERED: ROCEPHIN VIAL 500 MG IM ONE (19:08)
[2017-09-17] MEDS ORDERED: XYLOCAINE 1 % (PLAIN) ONE (19:10)
[2017-09-17] MEDS ORDERED: ROCEPHIN VIAL 500 MG ONE (19:10)
== END 2017-09-17 19:30 | disposition home or self-care (01) ==
LOC: ER 18:14
DX: N30.01 Acute cystitis with hematuria (principal)
CPT/HCPCS: 81001; 87086; 96372; 99282; J0696; J2001

== ENCOUNTER 2024-07-29 11:00 | Inpatient (IN) ==
[2024-07-29] MEDS: LR 1,000 ML IV 900 ML IV PRN (11:10)
[2024-07-29] MEDS ORDERED: KETAMINE HCL ONE (11:14)
[2024-07-29] MEDS ORDERED: XYLOCAINE 2 % (PLAIN) ONE (11:14)
[2024-07-29] MEDS ORDERED: ULTANE GAS IN ONE (11:14)
[2024-07-29] MEDS: ANCEF VIAL 1 GRAM IV PRN (11:19)
[2024-07-29] MEDS: VERSED IVP PRN (11:20)
[2024-07-29] MEDS: REGLAN INJ 10 MG VIAL IVP PRN (11:20)
[2024-07-29] MEDS: PEPCID 20 MG VIAL IVP PRN (11:20)
[2024-07-29] MEDS: DIPRIVAN VIAL 120 ML IVP PRN (11:23)
[2024-07-29] MEDS: FENTANYL VIAL INJ 100 mcg IVP PRN (11:23)
[2024-07-29] MEDS: ZEMURON 100 MG VIAL IVP PRN (11:23)
[2024-07-29] MEDS ORDERED: DANTRIUM PRN (11:25)
[2024-07-29] MEDS: ANCEF VIAL 1 GRAM IVP ONE (11:27)
[2024-07-29] MEDS ORDERED: LR 1,000 ML IV 1,000 ML IV ONE (11:28)
[2024-07-29 11:30] LABS: BASOPHILS # (AUTO) 0.1 X10^3/uL (0.0-0.1); BASOPHILS % (AUTO) 0.3 % (0.2-1.0); EOSINOPHILS % (AUTO) 0.1 % (0.9-2.9); HEMATOCRIT 25.6 % (36.0-47.0); HEMOGLOBIN 8.6 g/dL (12.0-16.0); LYMPHOCYTES % (AUTO) 10.7 % (21.0-51.0); MEAN CORPUSCULAR HEMOGLOBIN 28.9 pg (27.0-34.0); MEAN CORPUSCULAR HGB CONC 33.5 g/dL (33.0-35.0); MEAN CORPUSCULAR VOLUME 86.2 fL (80.0-100.0); MEAN PLATELET VOLUME 7.1 fL (7.4-11.0); MONOCYTES # (AUTO) 1.3 x10^3/uL (0.3-0.8); MONOCYTES % (AUTO) 6.9 % (0.0-13.0); NEUTROPHILS # (AUTO) 15.2 x10^3/uL (2.2-4.8); PLATELET COUNT 332 X10^3/uL (150.0-450.0); RED BLOOD COUNT 2.97 X10^6/uL (3.5-5.4); WHITE BLOOD COUNT 18.6 X10^3/uL (3.6-10.0)
[2024-07-29] MEDS: HESPAN IV IN NS 500 ML IV ONE (11:34)
[2024-07-29] MEDS: DECADRON INJ IVP PRN (11:45)
[2024-07-29] MEDS: NS 1,000 ML IV 900 ML IV PRN (11:45)
[2024-07-29 11:46] LABS: ALANINE AMINOTRANSFERASE 20 Units/L (12-78); ALBUMIN 2.9 g/dL (3.4-5.0); ALKALINE PHOSPHATASE 66 Units/L (46-116); ASPARTATE AMINO TRANSFERASE 15 Units/L (15-37); BLOOD UREA NITROGEN 14 mg/dL (7-18); CALCIUM 8.5 mg/dL (8.5-10.1); CARBON DIOXIDE 23.6 mmol/L (21-32); CHLORIDE 102 mmol/L (98-107); COR CA(FOR HYPOALB) 9.4 mg/dL (8.5-10.1); COR NA(FOR HYPERGLY) 136 mmol/L (136-145); CREATININE 1.03 mg/dL (0.55-1.02); GLUCOSE 117 mg/dL (65-99); POTASSIUM 3.8 mmol/L (3.5-5.1); SODIUM 136 mmol/L (136-145); TOTAL PROTEIN 7.1 g/dL (6.4-8.2); eGFR NON BLACK RACES > 60 (>60)
[2024-07-29] MEDS: NS 1,000 ML IV 1,000 ML ONE (11:50)
[2024-07-29] MEDS: OFIRMEV IV 1000 MG VIAL 1,000 MG/100 ML VIAL IV PRN (12:10)
[2024-07-29] MEDS: DIPRIVAN VIAL 20 ML ONE (12:12)
[2024-07-29] MEDS: NEO-SYNEPHRINE INJ ONE (12:12)
[2024-07-29] MEDS: PRECEDEX INJ VIAL ONE (12:12)
[2024-07-29] MEDS: BRIDION ONE (12:12)
[2024-07-29] MEDS: OFIRMEV IV 1000 MG VIAL 1,000 MG/100 ML VIAL IV ONE (12:12)
[2024-07-29] MEDS: PEPCID 20 MG VIAL ONE (12:13)
[2024-07-29] MEDS: VERSED ONE (12:13)
[2024-07-29] MEDS: DILAUDID INJ ONE ×2 (12:13→13:07)
[2024-07-29] MEDS: ZEMURON 100 MG VIAL ONE (12:13)
[2024-07-29] MEDS: FENTANYL VIAL INJ 100 mcg ONE (12:13)
[2024-07-29] MEDS: REGLAN INJ 10 MG VIAL ONE (12:13)
[2024-07-29] MEDS: ZOFRAN INJ 4 MG VIAL ONE (12:13)
[2024-07-29] MEDS: DECADRON INJ ONE (12:13)
[2024-07-29 12:14] VITALS: BMI 38.7
[2024-07-29] MEDS: DILAUDID INJ IVP PRN ×2 (12:29→13:08)
[2024-07-29] MEDS: KETAMINE HCL IV PRN (12:36)
[2024-07-29] MEDS ORDERED: BARHEMSYS INJ IVP PRN (12:41)
[2024-07-29] MEDS ORDERED: ZOFRAN INJ 4 MG VIAL IVP PRN ×2 (12:41→13:24)
[2024-07-29] MEDS ORDERED: BENADRYL INJ 50 MG VIAL IVP PRN ×2 (12:41→13:24)
[2024-07-29] MEDS: PRECEDEX INJ VIAL IVP PRN (12:42)
[2024-07-29] MEDS: BRIDION IVP PRN (12:45)
[2024-07-29] MEDS: DUONEB 0.5 MG/3 MG (3 mL) NEB ONE (12:57)
[2024-07-29] MEDS: TORADOL 30 MG VIAL ONE (13:40)
[2024-07-29] MEDS: TORADOL 30 MG VIAL IVP PRN (13:40)
[2024-07-29] MEDS ORDERED: DIFLUCAN PO SCH (14:00)
[2024-07-29] MEDS: PERCOCET TAB 5/325 MG PO PRN (14:35)
[2024-07-29] MEDS: D5 1/2 NS 1,000 ML 1,000 ML IV SCH (14:36)
[2024-07-29] MEDS: HEMOCYTE PLUS PO SCH (17:41)
[2024-07-29 17:53] LABS: HEMATOCRIT 19.2 % (36.0-47.0); HEMOGLOBIN 6.4 g/dL (12.0-16.0)
[2024-07-29] MEDS ORDERED: DUONEB 0.5 MG/3 MG (3 mL) NEB PRN (21:00)
[2024-07-30 05:31] VITALS: O2SAT 99
[2024-07-30] MEDS ORDERED: MOTRIN TAB 800 MG PO PRN (06:14)
[2024-07-30 06:26] LABS: BASOPHILS # (AUTO) 0.1 X10^3/uL (0.0-0.1); BASOPHILS % (AUTO) 0.3 % (0.2-1.0); HEMATOCRIT 23.2 % (36.0-47.0); HEMOGLOBIN 7.9 g/dL (12.0-16.0); LYMPHOCYTES # (AUTO) 1.9 X10^3/uL (1.3-2.9); MEAN CORPUSCULAR HEMOGLOBIN 29.2 pg (27.0-34.0); MEAN CORPUSCULAR HGB CONC 34.2 g/dL (33.0-35.0); MEAN CORPUSCULAR VOLUME 85.5 fL (80.0-100.0); MEAN PLATELET VOLUME 7.1 fL (7.4-11.0); MONOCYTES # (AUTO) 1.2 x10^3/uL (0.3-0.8); MONOCYTES % (AUTO) 6.5 % (0.0-13.0); NEUTROPHILS # (AUTO) 14.6 x10^3/uL (2.2-4.8); NEUTROPHILS % (AUTO) 82.2 % (42.0-75.0); PLATELET COUNT 227 X10^3/uL (150.0-450.0); RED BLOOD COUNT 2.72 X10^6/uL (3.5-5.4); RED CELL DISTRIBUTION WIDTH 13.6 % (11.6-16.5); WHITE BLOOD COUNT 17.8 X10^3/uL (3.6-10.0)
[2024-07-30 06:47] LABS: BLOOD UREA NITROGEN 6 mg/dL (7-18); CALCIUM 7.6 mg/dL (8.5-10.1); CARBON DIOXIDE 23.7 mmol/L (21-32); CHLORIDE 107 mmol/L (98-107); COR NA(FOR HYPERGLY) 138 mmol/L (136-145); CREATININE 0.69 mg/dL (0.55-1.02); GLUCOSE 113 mg/dL (65-99); POTASSIUM 3.6 mmol/L (3.5-5.1); SODIUM 138 mmol/L (136-145); eGFR NON BLACK RACES > 60 (>60)
[2024-07-30] MEDS: BACTROBAN TOPICAL OINT TOP SCH (09:12)
[2024-07-30] MEDS: PROTONIX TAB 40 MG PO SCH (09:12)
[2024-07-30] MEDS: COLACE CAP 100 MG PO SCH (09:12)
[2024-07-30 10:22] VITALS: BP 124/57; PULSE 107; TEMP 98.6
[2024-07-30] MEDS: NS 250 ML IV 250 ML IV ONE (10:22)
[2024-07-30] MEDS: NS 1,000 ML IV 1,000 ML ONE (10:22)
[2024-07-30 11:05] VITALS: RESP 20
== END 2024-07-30 11:50 | disposition home or self-care (01) | DRG 818 ==
LOC: LD 11:00 → MED/SURG 13:43
PROVIDERS: ADMIT Specialist; ATTEND Specialist
DX: D62 Acute posthemorrhagic anemia; O00.101 Right tubal pregnancy without intrauterine pregnancy; R00.0 Tachycardia, unspecified; Z65.8 Other specified problems related to psychosocial circumstances